=== PATIENT | male | born 1990 ===

== ENCOUNTER 2023-08-09 09:58 | Emergency (ER) | payer OTHER, SELFPAY ==
[2023-08-09 11:44] VITALS: BP 150/97; PULSE 72; RESP 16; TEMP 36.6; O2SAT 99; BMI 36.9
== END 2023-08-09 12:47 | disposition left against medical advice (07) ==
PROVIDERS: Emergency Provider Emergency Medicine
DX: Z20.2 Contact with and (suspected) exposure to infections with a predominantly sexual mode of transmission (principal); Z53.21 Procedure and treatment not carried out due to patient leaving prior to being seen by health care provider
CPT/HCPCS: 99281